=== PATIENT | female | born 1990 | race Caucasian/White ===

== ENCOUNTER 2020-12-19 10:19 | Inpatient (IN) | payer OTHER ==
[~2020-12-19] VITALS: Ht 162.6 cm; Wt 103.0 kg
[~2020-12-19 10:19] MED LIST: ACID CONTROL150 MG PO; COLACE 100MG C100 MG PO; IBUPROFEN600 MG PO; LORTAB 5-325 M1 EACH PO
[2020-12-19 11:46] LABS: HEMOGLOBIN 11.8 gm/dl (12.3-15.3); RED BLOOD COUNT 3.63 M/UL (4.00-5.10); WHITE BLOOD COUNT 18.9 K/UL (4.5-11.0)
[2020-12-19] MEDS ORDERED: IBUPROFEN800 MG PO (15:16)
[2020-12-19] MEDS ORDERED: COLACE 100MG C100 MG PO (15:16)
[2020-12-19] MEDS ORDERED: INTEGRA F CAPS1 EACH PO (15:16)
[2020-12-20 06:36] LABS: HEMOGLOBIN 10.9 gm/dl (12.3-15.3)
== END 2020-12-20 17:57 | disposition home or self-care (01) | DRG 807 ==
LOC: GENOP 10:19 → OB 11:21
PROVIDERS: ADMIT Obstetrics & Gynecology
PROC: 10E0XZZ Delivery of Products of Conception, External Approach (ICD-10-PCS; principal; 2020-12-19)
PROC: 3E0234Z Introduction of Serum, Toxoid and Vaccine into Muscle, Percutaneous Approach (ICD-10-PCS; 2020-12-19)
PROC: 3E02340 Introduction of Influenza Vaccine into Muscle, Percutaneous Approach (ICD-10-PCS; 2020-12-20)
DX: O99.334 Smoking (tobacco) complicating childbirth (principal); Z37.0 Single live birth; Z3A.38 38 weeks gestation of pregnancy; Z20.822 Contact with and (suspected) exposure to COVID-19; Z23 Encounter for immunization
CPT/HCPCS: 36415; 51702; 81001; 83518; 85014; 85018; 85025; 87635; 90471; 90686; 90715; G0008; G0009; J2590; J7120